=== PATIENT | female | born 1955 | race Caucasian/White ===

== ENCOUNTER 2018-03-07 17:14 | Emergency (ER) | payer MEDICARE, MEDICAID, SELFPAY ==
[2018-03-07 17:15] VITALS: BP 171/90; PULSE 93; RESP 17; TEMP 36.8; O2SAT 94; BMI 50.4
--- NOTE | 2018-03-07 18:02 | EKG12_ITS ---
Test Reason : EDEMA Blood Pressure : / mmHG Vent. Rate : 079 BPM Atrial Rate : 079 BPM P-R Int : 144 ms QRS Dur : 058 ms QT Int : 368 ms P-R-T Axes : 071 062 052 degrees QTc Int : 421 ms Normal sinus rhythm Low voltage QRS Borderline ECG Confirmed by SHANNAN WILLSON, ESAU ([id number]), acquisition editor GEORGINA HOLMAN ([id number]) on 03/12/2018 1:55:52 PM Referred By: DESI Confirmed By:ESAU CAMPBELL MD
[2018-03-07 18:28] LABS: Absolute Lymphocyte Count 2.84 X10^3/ul (0.83-4.51); Absolute Neutrophil Count 6.5 X10^3/uL (2.0-7.7); Basophil# 0.02 X10^3/uL; Basophil% 0.2 % (0-1); Eosinophil# 0.32 X10^3/uL; Hematocrit 40.8 % (37-47); Lymphocyte # 2.84 X10^3/ul (4.0); Lymphocyte % 26.6 % (19-41); Mean Corp Hgb Conc 31.9 g/gl (32-36); Mean Corpuscular Hgb 30.5 pg (27.0-32.0); Mean Corpuscular Volume 95.8 fL (81-99); Mean Platelet Vol. 9.3 fl (6.2-12.0); Monocyte# 1.04 X10^3/uL; Monocyte% 9.7 % (0-10); Neutrophil # 6.45 X10^3/uL (2.7-7.7); Neutrophil % 60.3 % (47-70); Platelet Count 250 K/mm3 (150-450); RBC Distribution Width CV 13.1 % (11.6-14.6); RBC Distribution Width SD 45.4 fl (35.1-43.9); Red Blood Count 4.26 M/mm3 (4.2-5.4); White Blood Count 10.7 K/mm3 (4.4-11.0)
[2018-03-07 18:29] LABS: POSITIVE COUNT NO; POSITIVE DIFFERENTIAL NO; POSITIVE MORPHOLOGY NO
--- NOTE | 2018-03-07 18:34 | RAD_ITS ---
STUDY: X-RAY CHEST REASON FOR EXAM: Female, 63 years old. Lower extremity edema. TECHNIQUE: 2 views COMPARISON: None. FINDINGS: Generalized hyperexpansion. Mild interstitial changes most likely of a chronic nature. Negative for major consolidation or atelectasis. There is no demonstrated pleural abnormality. Normal size heart. Normal mediastinum and jaimie. Normal visualized pulmonary arteries. There is atherosclerotic calcification of the aortic arch with tortuosity. Mild degenerative changes of the thoracic spine. Normal visualized ribs, clavicles, and shoulders. There is no demonstrated abnormality of the visualized soft tissue structures of the upper abdomen. RAD/Chest PA and Lateral IMPRESSION: Hyperexpansion and mild chronic interstitial changes suggesting a component of COPD. Negative for cardiomegaly, venous congestion or pleural effusion. Electronically Signed: Bernadette Key MD at 18:47 EDT , Service support ,
[2018-03-07 18:50] LABS: ALB/GLOB Ratio 0.8 RATIO (0.9-2.4); AST(SGOT) 22 U/L (15-37); Alanine Aminotransfer ALT/SGPT 26 U/L (13-56); Albumin, Serum 3.1 g/dL (3.2-5.0); Alkaline Phosphatase 113 U/L (45-117); Anion Gap 4 (5-15); BUN 17 mg/dL (7-18); BUN/Creat Ratio 13.5 RATIO (10-20); Calcium,Total 8.8 mg/dL (8.5-10.1); Chloride 105 mmol/L (98-107); Creatinine, Serum 1.26 mg/dL (0.55-1.02); EST Glomerular Filtration Rate 45 mL/min (>60); Est Glom Filt Rate - Afr Amer 55 mL/min (>60); Estimated Creatinine Clearance 43.86 ml/min; Globulin 4.1 g/dL (2.2-4.2); Glucose 99 mg/dL (74-106); Potassium 4.2 mmol/L (3.5-5.1); Protein, Total 7.2 g/dL (6.4-8.2); Sodium Level 140 mmol/L (136-145)
[2018-03-07 18:55] LABS: BNP,B-Type NATRIURETIC PEPTIDE 20.4 pg/mL (0-100)
[2018-03-07 19:13] VITALS: O2SAT 93
[2018-03-07 19:29] VITALS: BP 142/74; PULSE 74; RESP 16; O2SAT 94
--- NOTE | 2018-03-07 19:41 | ED.VISSUMM ---
- ER Visit Summary Date of Service: 03/07/18 Chief Complaint: Leg swelling History of Present Illness: The patient is a 63 F who notes 3 days of bilateral leg swelling. Patient states that it has actually been going on for little more than a week but worse the last 3 days. She called her PCPs office who gave her appointment this morning but she could not make it that soon she is going to urgent care she states she was told that they could help her there. Stated that she recently started Premarin about 3 weeks ago. Has not had leg swelling like this in the past. She does take low-dose hydrochlorothiazide. She states that her last doctor's appointment she would 308 pounds. Now today she weighs 317. Physical Examination: Afebrile vital signs are stable Gen: Well-nourished well-developed Head: Normocephalic atraumatic Eyes: Perrl EOMI ENT: TMs clear no rhinorrhea moist mucous membranes Neck: Supple no lymphadenopathy no JVD nontender CVS: Regular rate rhythm no murmurs normal S1-S2 Respiratory: No distress clear to auscultation bilaterally chest nontender Abdomen: Soft nontender nondistended normal bowel sounds no masses Back: Nontender Extremity: 1+ edema of the bilateral lower extremities at the level of the knee Skin: Normal color no rash Neuro: alert orientated ?3 CN II-XII intact normal strength sensation reflexes gait cerebellar Psych: Normal affect normal mood Test Results: Creatinine 1.26. Nitric peptide 20.4. Troponin negative. EKG sinus at a rate of 79. Chest x-ray negative. Emergency Department Course and Treatment: Patient ambulated with no desaturations or significantly increased work of breathing. Patient will be started on Lasix 40 mg twice a day for 5 days in the range early follow-up next week with her doctor. She advised on leg elevation and compression stockings. Impression: 1. Bilateral lymphedema This note was generated with [employer] dictation software. It may contain incorrect words, spelling, and punctuation that were not noted in review of the chart prior to signing ED Disposition - Plan for ED Patient: Disposition: Home or Assisted Living Chief Complaint: Edema Instructions: ED Lymphedema Prescriptions: Furosemide [Lasix] 40 mg PO BIDLX #10 tab Referrals: [facility] Doctor,Out of [Primary Care Provider] - (with in 1 week)
[2018-03-07 20:00] VITALS: BP 139/78; PULSE 77; RESP 16; O2SAT 96
== END 2018-03-07 20:04 | disposition home or self-care (01) ==
PROVIDERS: Emergency Provider Emergency Medicine
DX: I89.0 Lymphedema, not elsewhere classified (principal); R06.00 Dyspnea, unspecified; E66.9 Obesity, unspecified; I10 Essential (primary) hypertension; E78.00 Pure hypercholesterolemia, unspecified; Z72.0 Tobacco use; Z79.899 Other long term (current) drug therapy
CPT/HCPCS: 71046; 80053; 83880; 84484; 85025; 93005; 99284; A4216

== ENCOUNTER 2018-05-03 12:07 | Emergency (ER) | payer MEDICARE, MEDICAID, SELFPAY ==
[2018-05-03 12:08] VITALS: BP 142/81; PULSE 77; PULSE 81; RESP 18; RESP 19; TEMP 36.8; O2SAT 93; O2SAT 95; BMI 47.0
--- NOTE | 2018-05-03 13:20 | ED.VISSUMM ---
- ER Visit Summary Date of Service: 05/03/18 Chief Complaint: Left knee pain History of Present Illness: The patient is a 63 F with a 3 day history of pain and swelling to the left posterior knee. She denies any known injury. 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 She denies any recent travel. No known injury to her legs. She has full range of motion at her knee without difficulty. She denies chest pain or shortness of breath. Physical Examination: Vital signs are unremarkable. Patient sitting upright in bed. Heart is regular rate and rhythm. Lung sounds are clear. Lower external examination reveals a focal area of swelling with mild tenderness of the left posterior knee. There are no distended blood vessels noted to this area. She has full range of motion. There is no sign of any infection. She has strong distal pulses. Test Results: [] Emergency Department Course and Treatment: Vascular ultrasound is not available currently, but patient will return tomorrow for an outpatient vascular scan. Order has been written. My suspicion for a DVT is low and she will therefore not be given a dose of Lovenox currently. Treatment Plan: [] Disposition: Discharge Impression: Left knee pain, suspect Rubio's cyst This note was generated with [employer] dictation software. It may contain incorrect words, spelling, and punctuation that were not noted in review of the chart prior to signing ED Disposition - Plan for ED Patient: Chief Complaint: Lower Extremity Injury Referrals: [facility] Doctor,Out of [Primary Care Provider] -
--- NOTE | 2018-05-03 13:22 | ED.DEP ---
ED Disposition - Plan for ED Patient: Disposition: Home or Assisted Living Chief Complaint: Lower Extremity Injury Instructions: ED Sprain Knee Referrals: [facility] Doctor,Out of [Primary Care Provider] - Additional Instructions: Return tomorrow for US as discussed.
[2018-05-03 13:34] VITALS: BP 134/75; PULSE 74; RESP 19; O2SAT 92
== END 2018-05-03 13:39 | disposition home or self-care (01) ==
PROVIDERS: Emergency Provider Emergency Medicine
DX: M25.562 Pain in left knee (principal); I10 Essential (primary) hypertension; K21.9 Gastro-esophageal reflux disease without esophagitis; F41.9 Anxiety disorder, unspecified; Z87.891 Personal history of nicotine dependence; Z79.899 Other long term (current) drug therapy
CPT/HCPCS: 99282

== ENCOUNTER → 2018-05-04 10:17 | Outpatient (CLI) | payer MEDICARE, MEDICAID, SELFPAY ==
--- NOTE | 2018-05-04 10:30 | VDLE_ITS ---
Reason For Study: swelling Procedure LEFT Exam performed in department. GSV is normal. The exam was diagnostic. CFV is compressible, spontaneous, phasic, competent, and demonstrates normal augmentation. FV is compressible, spontaneous, phasic, competent and demonstrates normal augmentation. POP V is compressible, spontaneous, phasic, competent and demonstrates normal augmentation. T/P Trunk is compressible. PTV is compressible. LT PerV is compressible. Interpretation Summary Deep veins of the left lower extremity are patent and compressible segmentally. There is no evidence of left lower extremity deep vein thrombosis. Valvular competence appears intact within the proximal deep venous system on the left . The left greater saphenous vein appears patent and compressible segmentally. Ordering Physician: Lydia Montana Performed By: [place] RVT
== END ==
PROVIDERS: Visit Provider Emergency Medicine
DX: R22.42 Localized swelling, mass and lump, left lower limb (principal)
CPT/HCPCS: 93971

== ENCOUNTER 2018-05-12 15:49 | Emergency (ER) | payer MEDICARE, MEDICAID, SELFPAY ==
[2018-05-12 15:50] VITALS: BP 161/87; PULSE 73; RESP 18; TEMP 36.6; O2SAT 96; BMI 48.4
--- NOTE | 2018-05-12 16:16 | RAD_ITS ---
STUDY: X-RAY - LEFT KNEE REASON FOR EXAM: Female, 63 years old. Chronic knee pain TECHNIQUE: 3 view(s) of the knee. COMPARISON: None. FINDINGS: Normal visualized distal femur. Normal visualized proximal tibia and fibula. Normal proximal tibiofibular articulation. There is mild degenerative arthrosis of the medial femorotibial compartment. There is mild degenerative arthrosis of the lateral femorotibial compartment. There is mild degenerative arthrosis of the patellofemoral articulation. There is joint space narrowing of the medial knee compartment. The soft tissue structures are unremarkable. RAD/Knee 3 Views IMPRESSION: There are mild tricompartmental arthritic changes of the left knee. There is joint space narrowing of the medial knee compartment. Electronically Signed: Richi Ching MD at 16:39 EDT , Service support ,
[2018-05-12] MEDS: HYDROcodone Bitartrate/Apap 5/325 Tablet PO (16:22)
--- NOTE | 2018-05-12 17:12 | ED.VISSUMM ---
- ER Visit Summary Date of Service: 05/12/18 Chief Complaint: Knee pain History of Present Illness: The patient is a 63 F presenting for evaluation secondary knee pain. Patient reports that over the course last week she has had a development of left knee pain. She denies that there is any sort of specific inciting injury for this. She was seen by the emergency department and was told that she likely had a Rubio's cyst she had a outpatient duplex ultrasound that showed normal veins and confirmed the Rubio's cyst. Patient states that ibuprofen really is not alleviating the pain. She denies any presence of fevers. Review of systems otherwise negative. Physical Examination: Physical exam unremarkable except for examination of the patient's left lower extremity. Normal distal pulses and sensation. Patient does have somewhat of an effusion the left knee, no evidence of warmth. Limited range of motion secondary to pain, there is a palpable Rubio's cyst posteriorly and there is diffuse tenderness to palpation. No pain with short arc range of motion. Test Results: Knee x-ray shows osteoarthritis Emergency Department Course and Treatment: Patient presented for evaluation secondary knee pain. Patient's x-ray shows osteoarthritis. She was given [place] in the emergency department. At this point there is no concern for DVT, infection, and patient's pain likely secondary to age-related joint breakdown. Patient will be placed on a course of Naprosyn and instructed to follow-up with orthopedics. Disposition: Discharge Impression: 1. Osteoarthritis left knee This note was generated with [employer] dictation software. It may contain incorrect words, spelling, and punctuation that were not noted in review of the chart prior to signing ED Disposition - Plan for ED Patient: Disposition: Home or Assisted Living Chief Complaint: Lower Extremity Injury Diagnosis: Arthritis of knee Instructions: ED Knee Pain [facility] Prescriptions: Naproxen [Naprosyn] 500 mg PO BID PRN #20 tab Referrals: Zach Ye MD [STAFF PHYSICIAN] - As soon as possible
--- NOTE | 2018-05-12 17:15 | ED.DCSUM_ITS ---
- ER Visit Summary Date of Service: 05/12/18 Chief Complaint: Knee pain History of Present Illness: The patient is a 63 F presenting for evaluation secondary knee pain. Patient reports that over the course last week she has had a development of left knee pain. She denies that there is any sort of specific inciting injury for this. She was seen by the emergency department and was told that she likely had a Rubio's cyst she had a outpatient duplex ultrasound that showed normal veins and confirmed the Rubio's cyst. Patient states that ibuprofen really is not alleviating the pain. She denies any presence of fevers. Review of systems otherwise negative. Physical Examination: Physical exam unremarkable except for examination of the patient's left lower extremity. Normal distal pulses and sensation. Patient does have somewhat of an effusion the left knee, no evidence of warmth. Limited range of motion secondary to pain, there is a palpable Rubio's cyst posteriorly and there is diffuse tenderness to palpation. No pain with short arc range of motion. Test Results: Knee x-ray shows osteoarthritis Emergency Department Course and Treatment: Patient presented for evaluation secondary knee pain. Patient's x-ray shows osteoarthritis. She was given [place] in the emergency department. At this point there is no concern for DVT, infection, and patient's pain likely secondary to age-related joint breakdown. Patient will be placed on a course of Naprosyn and instructed to follow-up with orthopedics. Disposition: Discharge Impression: 1. Osteoarthritis left knee This note was generated with [employer] dictation software. It may contain incorrect words, spelling, and punctuation that were not noted in review of the chart prior to signing ED Disposition - Plan for ED Patient: Disposition: Home or Assisted Living Chief Complaint: Lower Extremity Injury Diagnosis: Arthritis of knee Instructions: ED Knee Pain [facility] Prescriptions: Naproxen [Naprosyn] 500 mg PO BID PRN #20 tab Referrals: Zach Ye MD [STAFF PHYSICIAN] - As soon as possible
[2018-05-12 17:27] VITALS: RESP 18
== END 2018-05-12 17:28 | disposition home or self-care (01) ==
PROVIDERS: Emergency Provider Emergency Medicine
DX: M17.12 Unilateral primary osteoarthritis, left knee (principal); M71.22 Synovial cyst of popliteal space [Baker], left knee; E66.9 Obesity, unspecified; Z79.899 Other long term (current) drug therapy
CPT/HCPCS: 73562; 99283

== ENCOUNTER 2018-07-02 15:00 | Outpatient (RCR) | payer MEDICARE, MEDICAID, SELFPAY | END 2018-07-13 23:59 | LOC: NS 15:00 | PROVIDERS: Visit Provider Orthopaedic Surgery | DX: E66.9 Obesity, unspecified (principal); Z68.42 Body mass index [BMI] 45.0-49.9, adult; Z71.3 Dietary counseling and surveillance | CPT/HCPCS: 97802; 97803 ==

== ENCOUNTER 2018-07-31 14:30 | Outpatient (RCR) | payer MEDICARE, MEDICAID, SELFPAY | END 2018-08-13 23:59 | LOC: NS 14:30 | PROVIDERS: Visit Provider Orthopaedic Surgery | DX: E66.9 Obesity, unspecified (principal); Z68.42 Body mass index [BMI] 45.0-49.9, adult; Z71.3 Dietary counseling and surveillance | CPT/HCPCS: 97803 ==

== ENCOUNTER 2018-09-24 08:00 | Outpatient (RCR) | payer MEDICARE, MEDICAID, SELFPAY | END 2018-10-13 23:59 | LOC: NS 08:00 | PROVIDERS: Visit Provider Orthopaedic Surgery | DX: E66.9 Obesity, unspecified (principal); Z68.42 Body mass index [BMI] 45.0-49.9, adult; Z71.3 Dietary counseling and surveillance | CPT/HCPCS: 97803 ==

== ENCOUNTER 2018-10-21 10:30 | Outpatient (RCR) | payer MEDICARE, MEDICAID, SELFPAY | END 2018-10-21 23:59 | LOC: NS 10:30 | PROVIDERS: Visit Provider Orthopaedic Surgery | DX: E66.9 Obesity, unspecified (principal); Z68.42 Body mass index [BMI] 45.0-49.9, adult; Z71.3 Dietary counseling and surveillance | CPT/HCPCS: 97803 ==

== ENCOUNTER → 2019-01-09 08:44 | Outpatient (CLI) | payer MEDICARE, MEDICAID, SELFPAY ==
--- NOTE | 2019-01-09 08:56 | RAD_ITS ---
STUDY: X-RAY - LUMBAR SPINE REASON FOR EXAM: Female, 63 years old. Low back pain. TECHNIQUE: 3 view(s) of the lumbar spine were obtained. COMPARISON: None FINDINGS: Normal lumbar lordosis. There is no substantial scoliosis. There is minimal degenerative anterolisthesis of L4 and L5 secondary to facet arthropathy. There is diffuse demineralization with multi-level endplate spondylosis. Mild loss of disc space heights though relatively preserved. The soft tissue structures are unremarkable. RAD/Lumbar Spine 2 or 3 Views IMPRESSION: Multilevel degenerative changes with mild loss of disc space throughout. Degenerative mild anterolisthesis of L4 and L5 likely secondary to facet arthropathy is present. Electronically Signed: Alex Wilkerson DO at 9:11 EDT , Service support ,
--- NOTE | 2019-01-09 09:11 | RAD_ITS ---
STUDY: X-RAY - LEFT KNEE REASON FOR EXAM: Female, 63 years old. Chronic left knee pain TECHNIQUE: 4 view(s) of the knee. COMPARISON: None. FINDINGS: Normal visualized distal femur. Normal visualized proximal tibia and fibula. Normal proximal tibiofibular articulation. There is mild degenerative arthrosis of the medial femorotibial compartment. Normal lateral femorotibial compartment. There is mild degenerative arthrosis of the patellofemoral articulation. There is a soft tissue prominence in the suprapatellar region suggesting a small volume joint effusion. The soft tissue structures are unremarkable. RAD/Knee 4 or More Views IMPRESSION: Mild medial and patellofemoral joint arthrosis. Trace joint effusion. Electronically Signed: Kyle Chavira MD at 12:18 EDT , Service support ,
== END ==
DX: M54.42 Lumbago with sciatica, left side (principal); M54.41 Lumbago with sciatica, right side; G89.29 Other chronic pain
CPT/HCPCS: 72100; 73564